=== PATIENT | female | born 1990 ===

== ENCOUNTER 2018-10-22 16:27 | Emergency (ER) | payer MEDICAID ==
--- NOTE | 2018-10-22 17:04 | Emergency Department Report ---
Blank Doc - Documentation Documentation: c/o of heavy vaginal bleeding while 2 months . No pain. No fever. Denies trauma
[2018-10-22 17:59] LABS: Bacteria,Urine 2+ /HPF (Negative); Bilirubin,Urine NEG (Negative); Blood,Urine LG (Negative); Color,Urine Red (Yellow); Urobilinogen,Urine < 2.0 mg/dL (<2.0)
--- NOTE | 2018-10-22 18:11 | Emergency Department Report ---
ED HPI - General Chief complaint: Vaginal Bleeding Stated complaint: 2 MONTHS /BLEEDING Time Seen by Provider: 10/22/18 17:03 Source: patient Mode of arrival: Ambulatory Limitations: No Limitations - History of Present Illness Initial comments: pt is a 28 yo female who presents to the ED with c/o vaginal bleeding that began at 4 PM today. The patient states she has had heavy bleeding. She states she is currently 2 month and 6 days . she states she has seen her PRACTICAL MINISTRIES PROFESSOR and had a confirmed . She denies any abd pain, emesis, fever, or urinary sx. /P:2/A:1 - Related Data Home Medications Medication Instructions Recorded Confirmed Last Taken Vits96/Iron Fum/Folic 1 tab PO DAILY 07/28/13 10/11/13 07/27/13 22:00 [ Tablet] 1 Allergies Allergy/AdvReac Type Severity Reaction Status Date / Time No Known Allergies Allergy Verified 03/04/13 13:42 ED Review of Systems ROS: Stated complaint: 2 MONTHS /BLEEDING Other details as noted in HPI Comment: All other systems reviewed and negative ED Past Medical Hx - Past Medical History Previous Medical History?: No Hx Hypertension: No Hx Heart Attack/AMI: No Hx Diabetes: No Hx Deep Vein Thrombosis: No Hx Pulmonary Embolism: No Hx Liver Disease: No Hx Renal Disease: No Hx Sickle Cell Disease: No Hx Headaches / Migraines: No Hx Seizures: No Hx Asthma: No Hx COPD: No Hx Tuberculosis: No Hx HIV: No - Surgical History Past Surgical History?: No - Social History Smoking Status: Never Smoker Substance Use Type: None - Medications Home Medications: Home Medications Medication Instructions Recorded Confirmed Last Taken Type Vits96/Iron Fum/Folic 1 tab PO DAILY 07/28/13 10/11/13 07/27/13 22:00 History [ Tablet] 1 ED Physical Exam - General Limitations: No Limitations General appearance: alert, in no apparent distress - Head Head exam: Present: atraumatic, normocephalic - Eye Eye exam: Present: normal appearance, PERRL - ENT ENT exam: Present: mucous membranes moist - Respiratory Respiratory exam: Present: normal lung sounds bilaterally. Absent: respiratory distress, wheezes, rales, rhonchi, stridor, chest wall tenderness, accessory muscle use, decreased breath sounds, prolonged expiratory - Cardiovascular Cardiovascular Exam: Present: normal rhythm, tachycardia, normal heart sounds. Absent: systolic murmur, diastolic murmur, rubs, gallop - GI/Abdominal GI/Abdominal exam: Present: soft, normal bowel sounds, other (gravid). Absent: tenderness, guarding, rebound, rigid - Neurological Exam Neurological exam: Present: alert, oriented X3 - Psychiatric Psychiatric exam: Present: normal affect, normal mood - Skin Skin exam: Present: warm, dry, intact ED Course Vital Signs 10/22/18 10/22/18 17:02 20:41 Temperature 98.3 F Pulse Rate 120 H 77 Respiratory 16 16 Rate Blood Pressure 147/91 114/74 [Left] O2 Sat by Pulse 99 98 Oximetry ED Medical Decision Making - Lab Data Result diagrams: 10/22/18 18:08 Lab Results 10/22/18 10/22/18 10/22/18 Range/Units 17:20 18:08 18:08 WBC 14.6 H (4.5-11.0) K/mm3 RBC 4.40 (3.65-5.03) M/mm3 Hgb 13.1 (10.1-14.3) gm/dl Hct 38.5 (30.3-42.9) % MCV 88 (79-97) fl MCH 30 (28-32) pg MCHC 34 (30-34) % RDW 13.1 L (13.2-15.2) % Plt Count 315 (140-440) K/mm3 Lymph % (Auto) 18.7 (13.4-35.0) % Desha % (Auto) 5.4 (0.0-7.3) % Eos % (Auto) 0.3 (0.0-4.3) % Baso % (Auto) 0.7 (0.0-1.8) % Lymph # 2.7 (1.2-5.4) K/mm3 Desha # 0.8 (0.0-0.8) K/mm3 Eos # 0.1 (0.0-0.4) K/mm3 Baso # 0.1 (0.0-0.1) K/mm3 Seg Neutrophils % 74.9 H (40.0-70.0) % Seg Neutrophils # 10.9 H (1.8-7.7) K/mm3 HCG, Quant 22850 H (0-4) mIU/mL Urine Color Red (Yellow) Urine Turbidity Clear (Clear) Urine pH 7.0 (5.0-7.0) Ur Specific [place] 1.003 (1.003-1.030) Urine Protein 30 mg/dl (Negative) mg/dL Urine Glucose (UA) Neg (Negative) mg/dL Urine Ketones Neg (Negative) mg/dL Urine Blood Lg (Negative) Urine Nitrite Neg (Negative) Urine Bilirubin Neg (Negative) Urine Urobilinogen < 2.0 (<2.0) mg/dL Ur Leukocyte Esterase Neg (Negative) Urine WBC (Auto) 1.0 (0.0-6.0) /HPF Urine RBC (Auto) 4.0 (0.0-6.0) /HPF U Epithel Cells (Auto) 1.0 (0-13.0) /HPF Urine Bacteria (Auto) 2+ (Negative) /HPF - Radiology Data Radiology results: report reviewed PROCEDURE: US OB TRANSVAGINAL TECHNIQUE: Transabdominal and transvaginal imaging was obtained HISTORY: Vaginal bleeding and pelvic pain . Serum beta hCG level 66,643 (6-7 weeks). LMP 08/21/2018 with estimated age 8 weeks 6 days and EDC 05/28/2019 COMPARISONS: None FINDINGS: Uterus: Uterus is enlarged in size and normal and homogeneous in echogenicity without focal fibroid formation. The uterus measures 13.7 x 6.3 x 7.4 cm in size. There is a single early viable intrauterine gestation noted. Intrauterine gestation: There is a single intrauterine gestation identified with both a pole and yolk sac. heart rate is monitored at 174 BPM using M-mode doppler. [place]-rump length measurement of 21.8 cm corresponds to estimated age 8 weeks 6 days with EDC 05/28/2019. Ovaries: Both ovaries appear normal in size and echogenicity with normal bloodflow bilaterally. The right ovary measures 3.4 x 1.8 x 2.2 cm and the left ovary measures 3.3 x 1.1 x 1.6 cm in size. Other: There is no evidence for solid adnexal mass is seen. There is no free fluid in the cul-de-sac. IMPRESSION: Single intrauterine viable with an approximate age of 8 weeks 6 days. This document is electronically signed by Muriel Hollis MD., October 22 2018 08:00:28 PM ET - Medical Decision Making pt is a 28 yo female who presents to the ED with c/o vaginal bleeding that began at 4 PM today. The patient states she has had heavy bleeding. She states she is currently 2 month and 6 days . she states she has seen her PRACTICAL MINISTRIES PROFESSOR and had a confirmed . She denies any abd pain, emesis, fever, or urinary sx. /P:2/A:1 vitals are normal on repeat. labs are WNL. pt blood type is Rh negative. UA is normal. US shows Single intrauterine viable with an approximate age of 8 weeks 6 days. no abd tenderness on exam. discussed to please follow up with your senior portfolio manager in the next 2-3 days. will need to have a repeat hcg quant in the next 2 [place] [id number]. may follow up with PCP, [employer]ACTICAL [employer]ISTRIES PROFESSOR, or return to the ED for repeat quant. return to the emergency room for any new or worsening symptoms. Critical care attestation.: If time is entered above; I have spent that time in minutes in the direct care of this critically ill patient, excluding procedure time. ED Disposition Clinical Impression: Threatened miscarriage Disposition: DC-01 TO HOME OR SELFCARE Is pt being admited?: No Does the pt Need Aspirin: No Condition: Stable Instructions: Threatened Miscarriage (ED) Additional Instructions: please follow up with your senior portfolio manager in the next 2-3 days. will need to have a repeat hcg quant in the next 2 [place] [id number]. return to [facility] emergency room for any new or worsening symptoms. Referrals: NICK NARVAEZ [Other] - 2-3 Days [facility] [Provider Group] - 2-3 Days Time of Disposition: 20:26 Print Language: ARMENIAN
[2018-10-22 18:25] LABS: Basophils # (Auto) 0.1 K/mm3 (0.0-0.1); Basophils % (Auto) 0.7 % (0.0-1.8); Eosinophils # (Auto) 0.1 K/mm3 (0.0-0.4); Eosinophils % (Auto) 0.3 % (0.0-4.3); Hematocrit 38.5 % (30.3-42.9); Hemoglobin 13.1 gm/dl (10.1-14.3); Lymphocytes # (Auto) 2.7 K/mm3 (1.2-5.4); Lymphocytes % (Auto) 18.7 % (13.4-35.0); Mean Corpuscular HGB Conc 34 % (30-34); Mean Corpuscular Volume 88 fl (79-97); Monocytes # (Auto) 0.8 K/mm3 (0.0-0.8); Monocytes % (Auto) 5.4 % (0.0-7.3); Platelet Count 315 K/mm3 (140-440); Red Cell Distribution Width 13.1 % (13.2-15.2)
--- NOTE | 2018-10-22 20:01 | Ultrasound Report ---
PROCEDURE: US OB <= 14 WEEKS FETUS TECHNIQUE: Transabdominal and transvaginal imaging was obtained HISTORY: Vaginal bleeding and pelvic pain . Serum beta hCG level 66,643 (6-7 weeks). LMP 08/21/2018 wit h estimated age 8 weeks 6 days and EDC 05/28/2019 COMPARISONS: None FINDINGS: Uterus: Uterus is enlarged in size and normal and homogeneous in echogenicity without focal fibroid f ormation. The uterus measures 13.7 x 6.3 x 7.4 cm in size. There is a single early viable intrauter ine gestation noted. Intrauterine gestation: There is a single intrauterine gestation identified with both a pole a nd yolk sac. heart rate is monitored at 174 BPM using M-mode doppler. [place]-rump length measur ement of 21.8 cm corresponds to estimated age 8 weeks 6 days with EDC 05/28/2019. Ovaries: Both ovaries appear normal in size and echogenicity with normal bloodflow bilaterally. The right ovary measures 3.4 x 1.8 x 2.2 cm and the left ovary measures 3.3 x 1.1 x 1.6 cm in size. Other: There is no evidence for solid adnexal mass is seen. There is no free fluid in the cul-de-s ac. IMPRESSION: Single intrauterine viable with an approximate age of 8 weeks 6 days. This document is electronically signed by Muriel Hollis MD., October 22 2018 07:59:14 PM ET
--- NOTE | 2018-10-22 20:02 | Ultrasound Report ---
PROCEDURE: US OB TRANSVAGINAL TECHNIQUE: Transabdominal and transvaginal imaging was obtained HISTORY: Vaginal bleeding and pelvic pain . Serum beta hCG level 66,643 (6-7 weeks). LMP 08/21/2018 wit h estimated age 8 weeks 6 days and EDC 05/28/2019 COMPARISONS: None FINDINGS: Uterus: Uterus is enlarged in size and normal and homogeneous in echogenicity without focal fibroid f ormation. The uterus measures 13.7 x 6.3 x 7.4 cm in size. There is a single early viable intrauter ine gestation noted. Intrauterine gestation: There is a single intrauterine gestation identified with both a pole a nd yolk sac. heart rate is monitored at 174 BPM using M-mode doppler. [place]-rump length measur ement of 21.8 cm corresponds to estimated age 8 weeks 6 days with EDC 05/28/2019. Ovaries: Both ovaries appear normal in size and echogenicity with normal bloodflow bilaterally. The right ovary measures 3.4 x 1.8 x 2.2 cm and the left ovary measures 3.3 x 1.1 x 1.6 cm in size. Other: There is no evidence for solid adnexal mass is seen. There is no free fluid in the cul-de-s ac. IMPRESSION: Single intrauterine viable with an approximate age of 8 weeks 6 days. This document is electronically signed by Muriel Hollis MD., October 22 2018 08:00:28 PM ET
[2018-10-22 20:42] VITALS: BP 114/74
== END 2018-10-22 20:41 | disposition home or self-care (01) ==
LOC: ED 16:27
DX: O20.0 Threatened abortion (principal); Z3A.08 8 weeks gestation of pregnancy
CPT/HCPCS: 36415; 76801; 76817; 81001; 84702; 85025

== ENCOUNTER 2019-04-11 00:26 | Outpatient (CLI) | payer MEDICAID ==
[2019-04-11 01:10] VITALS: BP 105/65
[2019-04-11] MEDS ORDERED: LACTATED RINGERS 500 ML IV ONE (02:47)
--- NOTE | 2019-04-11 03:30 | Ultrasound Report ---
Examination: Ultrasound Obstetrical Limited, 04/11/2019 INDICATION: labor. Evaluate for abruption. COMPARISON: Obstetrical ultrasound, 10/22/2018 FINDINGS: There is a single living intrauterine with the head in the cephalic position. Amniotic flui d index measures 9.5 cm, which is within normal limits. The heart rate is 145 beats per minute. The placenta is positioned posterior and left lateral. There is no sonographic evidence to suggest a bruption. IMPRESSION: 1. Limited obstetrical ultrasound with details as above. Signer Name: Taniya Baron MD Signed: 04/11/2019 3:26 AM Workstation Name: [id number]
== END 2019-04-11 03:11 | disposition home or self-care (01) ==
LOC: TRG 00:26
PROVIDERS: ATTEND Obstetrics & Gynecology
DX: Z34.83 Encounter for supervision of other normal pregnancy, third trimester (principal); Z3A.34 34 weeks gestation of pregnancy
CPT/HCPCS: 59025; 76815